=== PATIENT | female | born 1980 | race Caucasian/White ===

== ENCOUNTER 2017-05-07 15:10 | Emergency (ER) | payer OTHER ==
[~2017-05-07] VITALS: Ht 160 cm; Wt 54.8 kg
[~2017-05-07 15:10] MED LIST: AMPH10TA2 PO; NAPR220T PO
[2017-05-07 15:22] VITALS: TEMP 37; Ht 160 cm; Wt 54.8 kg
[2017-05-07] MEDS ORDERED: MoRPHine SULFATE 4 MG/ML 1 ML CARP\\VIAL IV PRN (15:45)
[2017-05-07] MEDS ORDERED: SODIUM CHLORIDE 0.9% 1000ML 1,000 ML IV ONE (15:45)
[2017-05-07] MEDS ORDERED: ONDANSETRON INJ 2 MG/ML 2 ML VIAL IV PRN (15:45)
--- NOTE | 2017-05-07 15:46 | EMERGENCY ROOM VISIT NOTE ---
History First contact with patient: 15:25 Chief Complaint: URINARY SYMPTOMS Stated Complaint: URINATING A LOT, BACK/RIGHT SIDE PAIN, TENDER STOM History of Present Illness The patient is a 36 year old female who presents to the Emergency Room with complaints of urinary frequency and lower back pain that started yesterday. The patient denies any dysuria, fever or chills. She is complaining of slight nausea. No vomiting. She denies any blood in her urine. The pain in her back is now wrapping around to her right side. She denies any changes in bowel movements. She denies any chance of . She is also complaining of lower abdominal bloating. Review of Systems 10 system review performed and negative unless noted in HPI or below Past Medical/Surgical History Surgical Problems: (1) H/O tubal ligation (2) Hx of cholecystectomy Anxiety, narcotic abuse Family History No significant family history Social History Smoking Status: Current Every Day Smoker Alcohol Use: none Drug Use: none Marital Status: in relationship Housing Status: lives with significant other Current/Historical Medications Scheduled Sulfa/Trimethoprim (Bactrim Ds 800MG/160MG), 1 TAB PO BID Scheduled PRN Ibuprofen (Advil), 800 MG PO Q8 PRN for Pain Tramadol (Ultram), 50 MG PO Q4H PRN for Pain Physical Exam Vital Signs Date Time Temp Pulse Resp B/P (MAP) Pulse Ox O2 Delivery O2 Flow Rate FiO2 05/07/17 19:12 86 111/74 96 05/07/17 18:07 70 20 131/88 96 Room Air 05/07/17 17:08 86 18 112/86 96 Room Air 05/07/17 15:22 37.0 122 20 153/84 99 Room Air Physical Exam VITALS: Vitals are noted on the nurse's note and reviewed by myself. Vital signs stable. GENERAL: 36-year-old female, in no acute distress, nondiaphoretic, well- developed well-nourished. SKIN: The skin was without rashes, erythema, edema, or bruising. HEAD: Normocephalic atraumatic. MOUTH: Mucous membranes moist NECK: S. No JVD. HEART: Regular rate and rhythm without murmurs gallops or rubs. LUNGS: Clear to auscultation bilaterally without wheezes, rales or rhonchi. No accessory muscle use. ABDOMEN: Positive bowel sounds x 4.Soft, mild tenderness to palpation over the suprapubic region. Right-sided CVA tenderness noted., without organomegaly. No guarding or rebound tenderness. MUSCULOSKELETAL: No muscle atrophy, erythema, or edema noted. Normal gait. Strength 5/5 throughout. NEURO: Patient was alert and oriented to person place and time. Normal sensation to touch. No focal neurological deficits. Medical Decision & Procedures ER Provider Diagnostic Interpretation: CT of the abdomen and pelvis IMPRESSION: There are no acute infectious or inflammatory findings in the abdomen or pelvis. renal US 1. There is mild to moderate right hydroureteronephrosis. A right ureteral jet was not identified and the appearance is highly concerning for an obstructing distal right ureteral calculus. 2. The left kidney is normal in size and without hydronephrosis. 3. The bladder was normal as imaged. Electronically signed by: Yony Hernandez M.D. 05/07/2017 4:52 PM Laboratory Results 05/07/17 15:45 Red Blood Count 5.40, Mean Corpuscular Volume 85.6, Mean Corpuscular Hemoglobin 29.8, Mean Corpuscular Hemoglobin Concent 34.8, Mean Platelet Volume 10.9, Neutrophils (%) (Auto) 68.5, Lymphocytes (%) (Auto) 25.8, Monocytes (%) (Auto) 4.4, Eosinophils (%) (Auto) 0.9, Basophils (%) (Auto) 0.2, Neutrophils # (Auto) 7.08, Lymphocytes # (Auto) 2.67, Monocytes # (Auto) 0.45, Eosinophils # (Auto) 0.09, Basophils # (Auto) 0.02 05/07/17 15:45 Test 05/07/17 15:40 05/07/17 15:45 Urine Color YELLOW Urine Appearance CLEAR (CLEAR) Urine pH 7.5 (4.5-7.5) Urine Specific [place] 1.009 (1.000-1.030) Urine Protein NEG (NEG) Urine Glucose (UA) NEG (NEG) Urine Ketones NEG (NEG) Urine Occult Blood NEG (NEG) Urine Nitrite NEG (NEG) Urine Bilirubin NEG (NEG) Urine Urobilinogen NEG (NEG) Urine Leukocyte Esterase TRACE (NEG) Urine WBC (Auto) 1-5 /hpf (0-5) Urine RBC (Auto) 0-4 /hpf (0-4) Urine Hyaline Casts (Auto) 1-5 /lpf (0-5) Urine Epithelial Cells (Auto) >30 /lpf (0-5) Urine Bacteria (Auto) NEG (NEG) White Blood Count 10.33 K/uL (4.8-10.8) Red Blood Count 5.40 M/uL (4.2-5.4) Hemoglobin 16.1 g/dL (12.0-16.0) Hematocrit 46.2 % (37-47) Mean Corpuscular Volume 85.6 fL (80-100) Mean Corpuscular Hemoglobin 29.8 pg (25-34) Mean Corpuscular Hemoglobin Concent 34.8 g/dl (32-36) Platelet Count 213 K/uL (130-400) Mean Platelet Volume 10.9 fL (7.4-10.4) Neutrophils (%) (Auto) 68.5 % Lymphocytes (%) (Auto) 25.8 % Monocytes (%) (Auto) 4.4 % Eosinophils (%) (Auto) 0.9 % Basophils (%) (Auto) 0.2 % Neutrophils # (Auto) 7.08 K/uL (1.4-6.5) Lymphocytes # (Auto) 2.67 K/uL (1.2-3.4) Monocytes # (Auto) 0.45 K/uL (0.11-0.59) Eosinophils # (Auto) 0.09 K/uL (0-0.5) Basophils # (Auto) 0.02 K/uL (0-0.2) RDW Standard Deviation 41.9 fL (36.4-46.3) RDW Coefficient of Variation 13.4 % (11.5-14.5) Immature Granulocyte % (Auto) 0.2 % Immature Granulocyte # (Auto) 0.02 K/uL (0.00-0.02) Urine Test NEG (NEG) Anion Gap 8.0 mmol/L (3-11) Est Creatinine Clear Calc Drug Dose 92.3 ml/min Estimated GFR () 128.8 Estimated GFR (Non- 111.1 BUN/Creatinine Ratio 11.8 (10-20) Calcium Level 9.3 mg/dl (8.5-10.1) Total Bilirubin 0.4 mg/dl (0.2-1) Aspartate Amino Transf (AST/SGOT) 21 U/L (15-37) Alanine Aminotransferase (ALT/SGPT) 26 U/L (12-78) Alkaline Phosphatase 106 U/L (45-117) Total Protein 9.1 gm/dl (6.4-8.2) Albumin 4.7 gm/dl (3.4-5.0) Globulin 4.4 gm/dl (2.5-4.0) Albumin/Globulin Ratio 1.1 (0.9-2) Medications Administered Medications (Trade) Dose Ordered Sig/Tacho Route Start Time Stop Time Status Last Admin Dose Admin Morphine Sulfate (MoRPHine SULFATE INJ) 4 mg Q1H PRN IV 05/07/17 15:45 05/07/17 19:41 DC 05/07/17 16:13 4 MG Ondansetron HCl (Zofran Inj) 4 mg Q2H PRN IV 05/07/17 15:45 05/07/17 19:41 DC 05/07/17 16:12 4 MG Sodium Chloride 1,000 ml @ 999 mls/hr Q1H1M ONCE IV 05/07/17 15:45 05/07/17 16:45 DC 05/07/17 15:52 999 MLS/HR Ketorolac Tromethamine (Toradol Inj) 30 mg NOW STAT IV 05/07/17 17:27 05/07/17 17:28 DC 05/07/17 17:55 30 MG ED Course Patient was seen and examined Vital signs including blood pressure were reviewed medications list was verified with patient Labs were obtained, and a saline lock was established The patient was given morphine and Zofran for pain and nausea. She was hydrated with 1 L of normal saline. Imaging was performed and reviewed.. Upon evaluation, the patient was still complaining of pain. She was given Toradol 30 mg IV. We discussed the results of her ultrasound. A CT of the abdomen and pelvis was performed and reviewed. The findings were discussed the patient. She voiced understanding. I reviewed discharge instructions the patient. They voiced understanding and had no further questions. Medical Decision Differential diagnosis: UTI, pyelonephritis, kidney stone, musculoskeletal pain , Menstrual cramping, herpes zoster, This patient is a 36-year-old female presents to the emergency department with urinary frequency and back pain. She was nontoxic in appearance. Her urine showed a few white blood cells. Otherwise, it was unremarkable. Her renal function is intact. No significant leukocytosis. I ordered an ultrasound to assess for signs of pyelonephritis. There was an absent right sided ureteral jet, and questionable obstructing right stone. The patient was taken for CT. No abnormalities were noted on the CT. The etiology of her pain is unclear. It is possible that she is having urinary frequency secondary to UTI. The patient was given a three-day course of antibiotics. It is also possible that she passed a stone while in the emergency department. Her pain did improve. She was instructed to follow-up with her primary care physician within the next several days for recheck. She was also given the name of a urologist if her symptoms persist. This chart was completed in part utilizing [employer] Voice Recognition software. Attempts were made to minimize the grammatical errors, random word insertions, pronoun errors and incomplete sentences. Any formal questions or concerns about the content, text or information contained within the body of this dictation should be directly addressed to the provider for clarification. Medication Reconcilliation Current Medication List: was personally reviewed by me Blood Pressure Screening Patient's blood pressure: Normal blood pressure Impression Primary Impression: Right flank pain Departure Information Dispostion Home / Self-Care Condition GOOD Prescriptions Sulfa/Trimethoprim (Bactrim Ds 800MG/160MG) Tab 1 TAB PO BID for 3 Days, #6 TAB Prov: Priscilla Badillo PA-C 05/07/17 Tramadol (Ultram) 50 Mg Tab 50 MG PO Q4H Y for Pain, #10 TAB Prov: Priscilla Badillo PA-C 05/07/17 Referrals No Doctor, Assigned (PCP) Kale Hernandez M.D. Patient Instructions My [facility] Additional Instructions You were evaluated in the emergency department with urinary symptoms and flank pain. It is possible that you passed a kidney stone. Please finish the entire course of antibiotics. If your symptoms persist, you may need to see a urologist. Ibuprofen 800 mg and/or Tylenol 1000 mg every 8 hours. You may also alternate these medications for more effective pain relief: Ibuprofen --4 HRS--> Tylenol --4 HRS--> ibuprofen --4 HRS--> Tylenol .... Tramadol for severe pain. 1 tab every 4 hours as needed. This may be taken with ibuprofen and/or Tylenol. Please follow-up with your primary care physician within the next 2-3 days for recheck. Please return to the emergency department with any new or worsening symptoms.
[2017-05-07] MEDS ORDERED: IBUP-1050 PO (15:50)
[2017-05-07 16:17] LABS: BASO % 0.2 %; BASO ABS # 0.02 K/uL (0-0.2); COMPLETE YES; EOS % 0.9 %; HEMATOCRIT 46.2 % (37-47); IG% 0.2 %; LYMPH % 25.8 %; LYMPH ABS # 2.67 K/uL (1.2-3.4); MEAN CELL VOLUME 85.6 fL (80-100); MEAN CORPUSCULAR HEMOGLOBIN 29.8 pg (25-34); MEAN CORPUSCULAR HGB CONC 34.8 g/dl (32-36); MEAN PLATELET VOLUME 10.9 fL (7.4-10.4); MONO % 4.4 %; NEUT % 68.5 %; PLATELET COUNT 213 K/uL (130-400); WHITE BLOOD COUNT 10.33 K/uL (4.8-10.8)
[2017-05-07 16:40] LABS: BUN/CREATININE RATIO 11.8 (10-20); CALCIUM 9.3 mg/dl (8.5-10.1); CREATININE 0.71 mg/dl (0.60-1.20); POTASSIUM 3.4 mmol/L (3.5-5.1)
[2017-05-07 16:42] LABS: ALB/GLOB RATIO 1.1 (0.9-2)
--- NOTE | 2017-05-07 16:54 | DIAGNOSTIC IMAGING REPORT ---
ULTRASOUND KIDNEYS AND BLADDER CLINICAL HISTORY: Right flank pain. COMPARISON STUDY: Abdominal CT dated 04/23/2016. TECHNIQUE: Real-time, grayscale, and color flow sonography of the kidneys and bladder is performed. Images are reviewed in the transverse and longitudinal planes. FINDINGS: Kidneys: The kidneys are normal in size and echotexture. The right kidney measures 11.3 x 3.7 x 4.3 cm and the left kidney measures 11.0 x 5.0 x 4.3 cm. There is mild to moderate right-sided hydronephrosis. No hydronephrosis is seen on the left. No shadowing renal calculi are identified. There is no sonographic evidence of contour deforming renal mass lesion. No perinephric fluid is identified. Bladder: The bladder is normal in appearance. A left renal jet was seen. The distal right ureter appears dilated above the bladder. IMPRESSION: 1. There is mild to moderate right hydroureteronephrosis. A right ureteral jet was not identified and the appearance is highly concerning for an obstructing distal right ureteral calculus. 2. The left kidney is normal in size and without hydronephrosis. 3. The bladder was normal as imaged. Electronically signed by: Yony Hernandez M.D. 05/07/2017 4:52 PM Dictated Date/Time: 05/07/2017 4:51 PM
[2017-05-07 17:08] LABS: URINE APPEARANCE CLEAR (CLEAR); URINE BILIRUBIN NEG (NEG); URINE COLOR YELLOW; URINE EPITHELIAL CELL AUTO >30 /lpf (0-5); URINE NITRITE NEG (NEG); URINE PH 7.5 (4.5-7.5); URINE SPECIFIC GRAVITY 1.009 (1.000-1.030); UROBILINOGEN NEG (NEG)
[2017-05-07 17:09] LABS: MANUAL MICROSCOPIC REQUIRED? NO; REVIEW REQ? NO
[2017-05-07] MEDS ORDERED: KETOROLAC TROMETHAMINE 30 MG/ML VIAL IV STA (17:27)
--- NOTE | 2017-05-07 18:13 | DIAGNOSTIC IMAGING REPORT ---
CT SCAN OF THE ABDOMEN AND PELVIS WITHOUT IV CONTRAST CLINICAL HISTORY: Right flank pain. COMPARISON STUDY: Abdominal CT dated 04/23/2016. TECHNIQUE: CT scan of the abdomen and pelvis is performed from the lung bases to the proximal femora. Images are reviewed in the axial, sagittal, and coronal planes. IV contrast was not administered for this examination as per the referring clinician. Note that the examination was performed in suboptimal fashion without oral and IV contrast. The examination is also degraded by a paucity of intraperitoneal fat. Automated dose control exposure was utilized. CT DOSE: 451.04 mGy.cm FINDINGS: Lung bases: The heart is normal in size and without pericardial effusion. The lung bases are clear noting dependent atelectasis. Liver: The unenhanced liver is normal in size, contour, and attenuation. There is minimal central intrahepatic biliary ductal dilatation. Gallbladder: Surgically absent noting clips in the gallbladder fossa. Spleen: Normal in size and attenuation. Pancreas: Unremarkable. Adrenal glands: Unremarkable. Kidneys: The unenhanced kidneys are normal in size and without hydronephrosis. A tiny extrarenal pelvis is incidentally noted on the right. There are no renal calculi identified. There is no evidence of contour deforming renal mass lesion. Abdominal vasculature: The abdominal aorta is normal in course and caliber. Bowel: The small bowel and colon are normal in course and caliber. The appendix is well-visualized and normal. Peritoneum: There is no intraperitoneal free air or abdominal ascites. There is a small fat-containing umbilical hernia. Lymphadenopathy: None. Pelvic viscera: The bladder, uterus, and adnexa are normal as visualized. Ovarian follicles are identified. Skeletal structures: No lytic or blastic lesions are seen. IMPRESSION: There are no acute infectious or inflammatory findings in the abdomen or pelvis. Electronically signed by: Yony Hernandez M.D. 05/07/2017 6:12 PM Dictated Date/Time: 05/07/2017 6:09 PM
[2017-05-07] MEDS ORDERED: SULF800T23 PO (18:49)
[2017-05-07] MEDS ORDERED: TRAM-10 PO (18:49)
[2017-05-07 19:12] VITALS: BP 111/74; PULSE 86; O2SAT 96
== END 2017-05-07 18:55 | disposition home or self-care (01) ==
LOC: C.EDB 15:12
DX: R10.31 Right lower quadrant pain (principal); R35.0 Frequency of micturition; Z90.49 Acquired absence of other specified parts of digestive tract; Z98.51 Tubal ligation status; F41.9 Anxiety disorder, unspecified; F17.210 Nicotine dependence, cigarettes, uncomplicated

== ENCOUNTER 2017-07-17 14:29 | Emergency (ER) | payer OTHER ==
[~2017-07-17] VITALS: Ht 160 cm; Wt 54.0 kg
[~2017-07-17 14:29] MED LIST changes: -AMPH10TA2 PO; +IBUP-1050 PO; -NAPR220T PO; +TRAM-10 PO
[2017-07-17 14:31] VITALS: BP 155/87; TEMP 36.4; Ht 160 cm; Wt 54.0 kg
[2017-07-17] MEDS ORDERED: ZOLP10TA PO (14:39)
[2017-07-17] MEDS ORDERED: CLON0.5T9 PO (14:39)
[2017-07-17] MEDS ORDERED: CITA20TA9 PO (14:39)
[2017-07-17] MEDS ORDERED: GABA-113 PO (14:39)
--- NOTE | 2017-07-17 16:16 | DIAGNOSTIC IMAGING REPORT ---
L-SPINE MIN 4 VIEWS ROUTINE HISTORY: Pain lumbar back pain COMPARISON: None. FINDINGS: There is no fracture. No subluxation. Disc spaces are preserved. IMPRESSION: No fracture or subluxation within the lumbar spine. The above report was generated using voice recognition software. It may contain grammatical, syntax or spelling errors. Electronically signed by: Chapito Goldsmith M.D. 07/17/2017 4:14 PM Dictated Date/Time: 07/17/2017 4:14 PM
[2017-07-17] MEDS ORDERED: TRAM-10 PO (16:38)
[2017-07-17] MEDS ORDERED: PRED20TA2 PO (16:38)
[2017-07-17 17:04] VITALS: PULSE 100; O2SAT 98
--- NOTE | 2017-07-17 23:10 | EMERGENCY ROOM VISIT NOTE ---
ED Visit Note First contact with patient: 14:57 Chief Complaint: I throughout my lower back. History of Present Illness: Ms. Schilling is a 36-year-old white female who ambulates into the ED complaining of lower back pain. Historically patient reports she's had an MRI at this facility in the past which showed that she had lumbar disc disease in 2 discs. I did review her medical records and no MRIs were found. I did find that she was was seen here previously and x-rays were performed and those x-rays were normal. Additionally when reviewing her prior medical records it is noted that she has been seen here before for narcotic abuse and has been on Suboxone. She also noted that she was in pain management for her back pain previously at this institution and once again when medical records were reviewed I do not find any reports from pain management. Patient reports over the last month she has been having ongoing lumbar back pain. She describes her pain as a sharp sensation. She places her discomfort in the right para musculature throughout the lumbar region of the spine. She currently rates her discomfort 7/10. She reports she has radiation of her pain superior into the lower thoracic spine and intermittently with movement at the waist she has a transient sharp pain that travels down her right leg. Her pain worsens with all movement at the waist and palpation. She has not identified any alleviating factors related to the pain. She reports she has been using a heating pad without relief of her discomfort. Associated with her pain intermittently she reports she has a tingling sensation in the right foot. She denies fevers, chills, sweats, skin eruptions, skin color changes, abdominal pain, flank pain, nausea, vomiting, diarrhea, constipation, rectal bleeding, black/tarry stools, vaginal bleeding, vaginal discharge, urinary symptoms, hematuria, rectal/genital paresthesias, lower extremity weakness, history of cancer, history of IV drug use. Review of Systems: As noted above in history of present illness. 8 body systems were reviewed and found to be negative as noted above. Past Medical History: Status post tubal ligation and cholecystectomy. Current Medications: Neurontin, Celexa, Ambien, Klonopin. Allergies to Medications: Patient denies. Social History: Patient is not employed; she feels safe in her home environment ; she admits to tobacco use and denies alcohol use. Physical Examination: Vital Signs: Date Time Temp Pulse Resp B/P (MAP) Pulse Ox O2 Delivery O2 Flow Rate FiO2 07/17/17 17:04 100 98 07/17/17 14:31 36.4 116 16 155/87 100 Room Air GENERAL: 36-year-old female in mild to moderate distress due to pain, nontoxic- appearing, afebrile and hemodynamically stable. NEUROLOGICAL: Awake, alert and oriented to person, place and time. Answering questions appropriately and following commands. Normal gait. Good hand eye coordination. No focal motor or sensory deficits. SKIN: Warm, dry and pink. No soft tissue eruptions or trauma noted. BACK: No tenderness over the bony cervical and thoracic spine. Moderate tenderness throughout the bony and paraspinous musculature of the lumbar spine. I do not appreciate any bony deformity, bony crepitus, step-offs, swelling or ecchymosis. I do not appreciate any muscle spasm or muscular deficits within the lumbar paraspinous musculature. Decreased range of motion in all movements due to pain. Questionable positive right-sided straight leg raise test. No CVA tenderness. THORAX: Lungs sounds are clear to auscultation and equal bilaterally with symmetrical chest wall. ABDOMEN: Flat, soft and nontender. Positive bowel sounds in all quadrants. No guarding, rigidity or organomegaly. LOWER EXTREMITIES: Moves extremities well on command and with purpose. Distal pulses, capillary refill, light sensation, muscle strength and deep tendon reflexes are intact and equal bilaterally. No calf tenderness or cords. ED Course: Patient is assessed as noted above. Patient's medication list was reviewed. Lumbar Back X-Rays: Were read by myself and the radiologist showing no acute fractures subluxations. Normal disc spacing. Patient did request an MRI on her back today; we proceeded with a lengthy conversation and I informed her that would not be appropriate to have an MRI today due to lack of neurological abnormalities. Patient was educated about today's findings and instructed on her treatment plan ; she verbalized understanding and agreement with this plan. Clinical Impression: Lumbar back pain with right-sided radiculopathy. Disposition: Patient discharged home in stable condition; prior to departure she was reassessed and subjectively reported she was feeling the same. Plan: Comfort measures were discussed with the patient including a sliding pain medication scale of ibuprofen, acetaminophen and Ultram; her name was checked in the state database and no red flags were noted and she was given appropriate narcotic precautions. Additional measures including use of ice and heat and proper lifting and moving techniques were discussed. Patient was prescribed prednisone 60 mg once a day for 5 days. Patient indicated that she is scheduled for follow-up with her primary care provider for July 22; she was encouraged to contact her PCP for arrangements for outpatient MRI. Patient was encouraged to follow-up with Dr. Jerez, orthopedic back specialist for definitive care and treatment. Patient was encouraged return ED for worsening/uncontrolled pain, fevers, abdominal pain, bowel and bladder dysfunction, genital paresthesias, lower extremity weakness/numbness/tingling or any new/concerning symptoms.
[2017-12-30] MEDS ORDERED: AMPH20CA3 PO (01:37)
[2017-12-30] MEDS ORDERED: OXYC-737 PO ×2 (02:04→02:06)
[2017-12-30] MEDS ORDERED: CLIN300C2 PO ×2 (02:04→02:06)
== END 2017-07-17 17:04 | disposition home or self-care (01) ==
LOC: C.EDB 14:30 → C.EDD 17:04
DX: M54.41 Lumbago with sciatica, right side (principal); Z98.51 Tubal ligation status; Z90.49 Acquired absence of other specified parts of digestive tract; Z79.899 Other long term (current) drug therapy

== ENCOUNTER 2017-10-02 00:18 | Emergency (ER) | payer OTHER ==
[~2017-10-02] VITALS: Ht 160 cm; Wt 50.8 kg
[~2017-10-02 00:18] MED LIST changes: +CITA20TA9 PO; +CLON0.5T3 PO; +GABA-113 PO; -IBUP-1050 PO; +ZOLP10TA PO
[2017-10-02 00:28] VITALS: TEMP 36.8; Ht 160 cm; Wt 50.8 kg
[2017-10-02] MEDS ORDERED: AMOX500C3 PO (00:44)
[2017-10-02] MEDS ORDERED: AMOXICILLIN HOME PACK 250 MG/TAB PO ONE (00:45)
[2017-10-02 01:01] VITALS: BP 137/86; PULSE 85; O2SAT 100
--- NOTE | 2017-10-02 22:13 | EMERGENCY ROOM VISIT NOTE ---
ED Visit Note First contact with patient: 00:25 CHIEF COMPLAINT: Toothache HISTORY OF PRESENT ILLNESS: This 37-year-old female patient presented to the emergency department with a progressive toothache for past several days. The patient is here in the department tonight at the same time as her significant other who is being seen for a nonrelated complaint by different provider. The patient evidently has had ongoing dental pain for some time, but has not tried to contact the dentist. She states that she "does not have time" to be seen by her PCP for this, and elected to check into the ER as she was already here. The patient believes it is coming from a lower molar. The pain is now steady and severe and radiates to the face. They rate their pain a 10/10 and the ibuprofen and Tylenol they have been taking has not relieved the pain. Denies facial swelling or fever. The patient denies any discharge from the mouth. REVIEW OF SYSTEMS: A 6 system review of systems was completed with positives and pertinent negatives listed in the HPI. ALLERGIES: no known allergies MEDICATIONS: No chronic medications PMH: Otherwise healthy SOCIAL HISTORY: Lives locally with significant other PHYSICAL EXAM: Vitals are noted on the nurse's note and reviewed by myself. Vital signs stable. GENERAL: White female, in no acute distress, nondiaphoretic, well-developed well -nourished. Mouth: The left lower first molar tooth is very carious and the gum is swollen and tender around it, without any discharge or signs of an abscess. The remainder of the pharynx and tonsils are without erythema, edema, or exudate. The airway is patent. There is no facial swelling, cervical or submandibular lymphadenopathy. The patient appears uncomfortable and in pain. The patient has overall fair dental hygiene. EARS: External auditory canals clear, tympanic membranes pearly miller without erythema or effusion bilaterally. HEART: Regular rate and rhythm without murmur gallop or rub LUNG: Clear to auscultation bilateral ED COURSE: Physical exam and history were performed. Nursing notes and EMR were reviewed. The patient has reports of dental pain for the past several days. She does not have obvious abscess on examination. The patient essentially checked in today because she was here with her significant other. The patient is requesting pain medication for her symptoms. Overall I will give her a course of amoxicillin to cover for any infection. I do not feel comfortable providing her narcotics. She will need to follow with her dentist for definitive care. She is otherwise invited back to the ER with any new, worsening, or concerning symptoms. Problem List Surgical Problems: (1) H/O tubal ligation Status: Resolved (2) Hx of cholecystectomy Status: Resolved Current/Historical Medications Scheduled Amoxicillin (Amoxil), 500 MG PO TID Citalopram Hydrobromide (Celexa), 20 MG PO DAILY Gabapentin (Neurontin), 300 MG PO TID Zolpidem Tartrate (Ambien), 10 MG PO HS Scheduled PRN Clonazepam (Klonopin), 0.5 MG PO TID PRN for Anxiety Allergies Coded Allergies: No Known Allergies (Verified , 10/02/17) Vital Signs Date Time Temp Pulse Resp B/P (MAP) Pulse Ox O2 Delivery O2 Flow Rate FiO2 10/02/17 01:01 85 16 137/86 100 10/02/17 00:28 36.8 110 20 130/93 98 Room Air Medications Administered Medications (Trade) Dose Ordered Sig/Tacho Route Start Time Stop Time Status Last Admin Dose Admin Amoxicillin (Amoxil 250MG Home Pack) 1 homepack UD ONCE PO 10/02/17 00:45 10/02/17 00:46 DC 10/02/17 01:01 1 HOMEPACK Departure Information Impression Primary Impression: Pain, dental Dispostion Home / Self-Care Condition GOOD Prescriptions Amoxicillin (AMOXIL) 500 Mg Cap 500 MG PO TID for 10 Days, #30 CAP Prov: Nabor Bender PA-C 10/02/17 Forms HOME CARE DOCUMENTATION FORM, IMPORTANT VISIT INFORMATION Patient Instructions My [facility] Additional Instructions You were seen and evaluated today on an emergency basis only. This is not a substitute for, or an effort to provide, complete comprehensive medical care. It is not possible to recognize and treat all injuries or illnesses in a single emergency department visit. For this reason it is recommended that you followup with a dentist as soon as possible for definitive care. Take amoxicillin 500 mg 3 times daily for the next 10 days. For baseline pain relief you may alternate ibuprofen and acetaminophen every 4 hours for pain control. Take 600 mg ibuprofen (Advil) and then 4 hours later take 1000 mg acetaminophen (Tylenol). Do not take more than 3000 mg acetaminophen in a single day. You are welcome to return to the emergency department anytime with new, worsening, or concerning symptoms.
== END 2017-10-02 01:05 | disposition home or self-care (01) ==
LOC: C.EDB 00:19 → C.EDC 01:05
DX: K02.9 Dental caries, unspecified (principal)

== ENCOUNTER → 2017-10-05 | Outpatient (CLI) | payer OTHER ==
[~2017-10-05] MED LIST changes: +AMOX500C3 PO; -TRAM-10 PO
== END | disposition home or self-care (01) ==
LOC: C.CPL 16:22
PROVIDERS: ATTEND Physician Assistant
DX: R39.89 Other symptoms and signs involving the genitourinary system (principal)